=== PATIENT | female | born 1990 | race American Indian/Alaskan Native ===

== ENCOUNTER 2019-12-20 18:02 | Inpatient (IN) | payer MEDICAID ==
[2019-12-20] MEDS ORDERED: MINERAL OIL 30 ML ORAL LIQD PO PRN (18:31)
[2019-12-20] MEDS ORDERED: ONDANSETRON 4 MG/2 ML INJ IV PRN (18:31)
[2019-12-20] MEDS ORDERED: TERBUTALINE 1 MG/1 ML INJ SUB-Q PRN (18:31)
[2019-12-20] MEDS ORDERED: ePHEDrine SULFATE 50 MG/1 ML INJ IV PRN (18:31)
[2019-12-20] MEDS ORDERED: fentaNYL 100 MCG/2 ML INJ IV PRN (18:31)
[2019-12-20] MEDS ORDERED: TERBUTALINE 1 MG/1 ML INJ IVP PRN (18:31)
[2019-12-20] MEDS ORDERED: LIDOCAINE (2%) 20 MG/1 ML VIAL 20 ML MDV INFILTRATI ONE (18:31)
[2019-12-20] MEDS ORDERED: DINOPROSTONE 10 MG VAG SUPP VG ONE (18:31)
[2019-12-20] MEDS ORDERED: OXYTOCIN 20 UNIT/1000ML DRIP 20 UNITS/1,000 ML BAG IV SCH (19:00)
[2019-12-20 19:24] LABS: Hematocrit 33.9 % (30.3-42.9); Hemoglobin 11.3 gm/dl (10.1-14.3); Mean Corpuscular HGB Conc 33 % (30-34); Mean Corpuscular Volume 85 fl (79-97); Platelet Count 270 K/mm3 (140-440); Red Blood Count 4.01 M/mm3 (3.65-5.03); Red Cell Distribution Width 15.7 % (13.2-15.2)
--- NOTE | 2019-12-20 20:02 | History and Physical Report ---
History of Present Illness Date of examination: 12/20/19 Date of admission: 12/20/19 18:02 Chief complaint: " I'm doing fine" History of present illness: 28 y/o female presents today @ 38.6 wks for an induction of labor. Pt started her pnc in Apr 2019 at [facility] and was co-managed by [facility] for GDMA2 and morbid obesity class III. Pt was started on Glyburide 5mg @ HS and Wellbutrin for outburst of anger and worrying. labs: B pos, AB screen neg, Rubella immune, VDRL NR, Hbsg neg, HIV neg, HSVII neg, GC/Chly/Trich neg, SS pos, GBS neg H&H 11.9/37.9, plt 295 Past History Past Surgical History: no surgical history Family/Genetic History: hypertension Social history: no significant social history - Obstetrical History Expected Date of Delivery: 12/28/19 Actual Gestation: 38 Week(s) 6 Day(s) : 1 Para: 0 Hx # Term Pregnancies: 0 Number of Pregnancies: 0 Spontaneous Abortions: 0 Induced : 0 Number of Living Children: 0 Medications and Allergies Allergies Allergy/AdvReac Type Severity Reaction Status Date / Time No Known Allergies Allergy Verified 12/20/19 18:24 Active Meds: Active Medications Butorphanol Tartrate (Stadol) 2 mg IV Q2H PRN PRN Reason: Pain , Severe (7-10) Ephedrine Sulfate (Ephedrine Sulfate) 10 mg IV Q2M PRN PRN Reason: Hypotension Fentanyl (Sublimaze) 100 mcg IV Q2H PRN PRN Reason: Pain,Severe (7-10) LABOR PAIN Oxytocin/Sodium Chloride (Pitocin/Ns 20 Unit/1000ml Drip) 20 units in 1,000 mls @ 125 mls/hr IV DIRECT JOHN Lactated Ringer's (Lactated Ringers) 1,000 mls @ 125 mls/hr IV DIRECT JOHN Mineral Oil (Mineral Oil) 30 ml PO QHS PRN PRN Reason: Constipation Ondansetron HCl (Zofran) 4 mg IV Q8H PRN PRN Reason: Nausea And Vomiting Terbutaline Sulfate (Brethine) 0.25 mg SUB-Q ONCE PRN PRN Reason: Hyperstimulation/Hypertonicity Terbutaline Sulfate (Brethine) 0.25 mg IVP ONCE PRN PRN Reason: Hyperstimulation/Hypertonicity Review of Systems Breasts: normal Genitourinary: normal appearance Rectal Exam: deferred - Vital Signs Vital signs: Vital Signs Pulse Pulse Ox 108 H 97 12/20/19 18:21 12/20/19 18:21 Temp Pulse Resp BP Pulse Ox 98.3 F 96 H 20 118/74 100 12/20/19 18:24 12/20/19 19:36 12/20/19 18:24 12/20/19 18:24 12/20/19 19:36 - Physical Exam Breasts: Positive: normal Abdomen: Positive: normal appearance, soft, other (gravid) Genitourinary (Female): Positive: normal external genitalia Vulva: both: normal Vagina: Positive: normal moisture Uterus: Positive: enlarged Adnexa: both: normal Anus/Rectum: Positive: normal perianal skin Extremities: Positive: normal - Obstetrical FHR: category 1 Uterine Contraction Monitor Mode: External Cervical Dilatation: 0 (per nurse) Uterine Contraction Pattern: Regular Uterine Tone Measurement Phase: Resting Uterine Contraction Intensity: Mild Results Result Diagrams: 12/20/19 19:04 Abnormal lab results 12/20/19 Range/Units 19:04 RDW 15.7 H (13.2-15.2) % All other labs normal. Assessment and Plan A: IUP@ 38.6 wks GDMA2 GBS neg CAT I FHT P: Admit for cervidil induction FSBS Q 4 hours US for EFW Pain med prn Expectant mtg - Patient Problems (1) At high risk for complications of intrauterine (IUP) Current Visit: Yes Status: Acute (2) GDM, class A2 Current Visit: Yes Status: Acute
--- NOTE | 2019-12-21 02:00 | Ultrasound Report ---
ULTRASOUND OBSTETRIC, 12/21/2019 CLINICAL INFORMATION/INDICATION: Evaluate well-being and CARMEN. COMPARISON: No prior studies are available for comparison FINDINGS: There is a single intrauterine . BPD = 9.1 cm = 36 weeks, 6 day(s). Head circumference = 33.5 cm = 38 weeks, 2 day(s). Abdominal circumference = 35.5 cm = 39 weeks, 3 day(s). Femur length = 7.7 cm = 39 weeks, 2 day(s). Overall estimated sonographic age = 38 weeks, 3 day(s). heart rate is 141 beats per minute. Estimated weight is 3624 grams. position is cephalic. Placenta is left lateral and grade 1 . Amniotic fluid volume appears within normal limits and measures 11.2 cm. Impression: 1. Single living intrauterine with estimated sonographic age of 38 weeks, 3 day(s). Signer Name: Alba Lemos MD Signed: 12/21/2019 1:56 AM Workstation Name: [id number]
[2019-12-21] MEDS ORDERED: ZOLPIDEM 5 MG TAB PO PRN (02:17)
[2019-12-21] MEDS ORDERED: DINOPROSTONE 10 MG VAG SUPP VG ONE (06:03)
[2019-12-21] MEDS: LACTATED RINGERS 1,000 ML IV SCH (08:48)
--- NOTE | 2019-12-21 11:28 | Progress Note ---
Assessment and Plan - Patient Problems (1) Encounter for induction of labor Current Visit: Yes Status: Acute Plan to address problem: Cervidil remains inplace Pain meds as desired Remove cervidil at 1830 Anticipate (2) GDM, class A2 Current Visit: Yes Status: Acute Plan to address problem: Continue to monitor blood glucose levels per orders Consult physician regarding blood glucose results and any needed coverage Subjective - Subjective Date of service: 12/21/19 Principal diagnosis: IOL Interval history: See admission H & P Patient reports: movement normal, contractions (irregular), no new complaints, no loss of fluid, no vaginal bleeding Objective - Vital Signs Vital Signs: Vital Signs - 12hr 12/21/19 12/21/19 12/21/19 00:51 00:52 00:53 Temperature 97.7 F Pulse Rate 90 89 99 H Respiratory 24 Rate Blood Pressure 114/66 Blood Pressure 144/66 [Left] Blood Pressure [Right] O2 Sat by Pulse 97 97 Oximetry 12/21/19 12/21/19 12/21/19 02:45 02:53 06:25 Temperature 98.2 F Pulse Rate 91 H 96 H 99 H Respiratory 24 Rate Blood Pressure 139/87 133/61 120/55 Blood Pressure 133/61 [Left] Blood Pressure [Right] O2 Sat by Pulse 98 95 Oximetry 12/21/19 12/21/19 12/21/19 06:27 06:30 06:35 Temperature 97.8 F Pulse Rate 94 H 94 H 86 Respiratory 24 Rate Blood Pressure Blood Pressure [Left] Blood Pressure 120/55 [Right] O2 Sat by Pulse 97 98 95 Oximetry 12/21/19 12/21/19 12/21/19 06:40 06:43 06:45 Temperature Pulse Rate 83 84 85 Respiratory Rate Blood Pressure 114/55 Blood Pressure [Left] Blood Pressure [Right] O2 Sat by Pulse 96 91 95 Oximetry 12/21/19 12/21/19 12/21/19 06:48 06:50 06:55 Temperature Pulse Rate 86 87 81 Respiratory Rate Blood Pressure 112/55 Blood Pressure [Left] Blood Pressure [Right] O2 Sat by Pulse 93 95 94 Oximetry 12/21/19 12/21/19 12/21/19 07:00 07:05 07:06 Temperature Pulse Rate 84 92 H 89 Respiratory Rate Blood Pressure Blood Pressure [Left] Blood Pressure [Right] O2 Sat by Pulse 93 94 93 Oximetry 12/21/19 12/21/19 12/21/19 07:10 07:13 07:15 Temperature Pulse Rate 88 78 86 Respiratory Rate Blood Pressure 107/63 Blood Pressure [Left] Blood Pressure [Right] O2 Sat by Pulse 93 92 96 Oximetry 12/21/19 12/21/19 12/21/19 07:20 07:25 07:30 Temperature Pulse Rate 87 83 88 Respiratory Rate Blood Pressure 106/56 Blood Pressure [Left] Blood Pressure [Right] O2 Sat by Pulse 98 97 96 Oximetry 12/21/19 12/21/19 12/21/19 07:34 07:35 07:40 Temperature Pulse Rate 82 92 H 78 Respiratory Rate Blood Pressure 111/58 Blood Pressure [Left] Blood Pressure [Right] O2 Sat by Pulse 92 95 96 Oximetry 12/21/19 12/21/19 12/21/19 07:45 07:52 07:53 Temperature Pulse Rate 134 H 199 H Respiratory Rate Blood Pressure Blood Pressure [Left] Blood Pressure [Right] O2 Sat by Pulse 79 L 86 91 Oximetry 12/21/19 12/21/19 12/21/19 07:55 07:58 08:06 Temperature Pulse Rate 91 H 164 H Respiratory Rate Blood Pressure 109/64 Blood Pressure [Left] Blood Pressure [Right] O2 Sat by Pulse 92 89 Oximetry 12/21/19 12/21/19 12/21/19 08:10 08:12 08:15 Temperature Pulse Rate 89 77 76 Respiratory Rate Blood Pressure 115/56 Blood Pressure [Left] Blood Pressure [Right] O2 Sat by Pulse 98 99 Oximetry 12/21/19 12/21/19 12/21/19 08:20 08:25 08:30 Temperature Pulse Rate 76 78 79 Respiratory Rate Blood Pressure 105/55 Blood Pressure [Left] Blood Pressure [Right] O2 Sat by Pulse 95 97 98 Oximetry 12/21/19 12/21/19 12/21/19 08:35 08:40 08:45 Temperature Pulse Rate 80 99 H 88 Respiratory Rate Blood Pressure Blood Pressure [Left] Blood Pressure [Right] O2 Sat by Pulse 97 98 97 Oximetry 12/21/19 12/21/19 12/21/19 08:50 08:55 08:56 Temperature Pulse Rate 90 66 100 H Respiratory Rate Blood Pressure 106/60 Blood Pressure [Left] Blood Pressure [Right] O2 Sat by Pulse 99 99 Oximetry 12/21/19 12/21/19 12/21/19 09:00 09:05 09:10 Temperature 97.2 F L Pulse Rate 100 H 90 97 H Respiratory 20 Rate Blood Pressure Blood Pressure [Left] Blood Pressure [Right] O2 Sat by Pulse 99 98 98 Oximetry 12/21/19 12/21/19 12/21/19 09:15 09:20 09:25 Temperature Pulse Rate 80 74 88 Respiratory Rate Blood Pressure Blood Pressure [Left] Blood Pressure [Right] O2 Sat by Pulse 99 100 98 Oximetry 12/21/19 12/21/19 12/21/19 09:30 09:35 09:40 Temperature Pulse Rate 90 82 89 Respiratory Rate Blood Pressure Blood Pressure [Left] Blood Pressure [Right] O2 Sat by Pulse 98 98 98 Oximetry 12/21/19 12/21/19 12/21/19 09:45 09:50 09:55 Temperature Pulse Rate 76 88 93 H Respiratory Rate Blood Pressure Blood Pressure [Left] Blood Pressure [Right] O2 Sat by Pulse 99 99 100 Oximetry 12/21/19 12/21/19 12/21/19 10:00 10:05 10:10 Temperature Pulse Rate 94 H 92 H 79 Respiratory Rate Blood Pressure Blood Pressure [Left] Blood Pressure [Right] O2 Sat by Pulse 99 100 99 Oximetry 12/21/19 12/21/19 12/21/19 10:11 10:15 10:20 Temperature Pulse Rate 78 83 92 H Respiratory Rate Blood Pressure 99/55 Blood Pressure [Left] Blood Pressure [Right] O2 Sat by Pulse 98 99 Oximetry 12/21/19 12/21/19 12/21/19 10:25 10:30 10:35 Temperature Pulse Rate 94 H 93 H 83 Respiratory Rate Blood Pressure Blood Pressure [Left] Blood Pressure [Right] O2 Sat by Pulse 96 98 97 Oximetry 12/21/19 12/21/19 12/21/19 10:40 10:45 10:50 Temperature Pulse Rate 88 94 H 97 H Respiratory Rate Blood Pressure Blood Pressure [Left] Blood Pressure [Right] O2 Sat by Pulse 99 99 98 Oximetry 12/21/19 12/21/19 12/21/19 10:55 11:00 11:05 Temperature Pulse Rate 80 80 86 Respiratory Rate Blood Pressure Blood Pressure [Left] Blood Pressure [Right] O2 Sat by Pulse 95 98 98 Oximetry 12/21/19 12/21/19 12/21/19 11:10 11:15 11:20 Temperature Pulse Rate 88 84 88 Respiratory Rate Blood Pressure 112/64 Blood Pressure [Left] Blood Pressure [Right] O2 Sat by Pulse 98 98 99 Oximetry - Exam Breasts: deferred Cardiovascular: Regular rate Lungs: Normal air movement Abdomen: Present: other (gravid) Uterus: Present: other (enlarged) FHR: category 1 Uterine Contraction Monitor Mode: External Uterine Contraction Pattern: Irregular Uterine Tone Measurement Phase: Resting Uterine Contraction Intensity: Mild - Labs Labs: Abnormal Labs 12/20/19 12/20/19 12/21/19 19:04 21:05 01:01 RDW 15.7 H POC Glucose 124 H 177 H 12/21/19 12/21/19 06:24 10:18 RDW POC Glucose 121 H 108 H Laboratory Results - last 24 hr 12/20/19 12/20/19 12/20/19 19:04 19:06 20:50 WBC 8.0 RBC 4.01 Hgb 11.3 Hct 33.9 MCV 85 MCH 28 MCHC 33 RDW 15.7 H Plt Count 270 Glucose 100 POC Glucose Blood Type B POSITIVE Antibody Screen Negative 12/20/19 12/21/19 12/21/19 21:05 01:01 06:24 WBC RBC Hgb Hct MCV MCH MCHC RDW Plt Count Glucose POC Glucose 124 H 177 H 121 H Blood Type Antibody Screen 12/21/19 10:18 WBC RBC Hgb Hct MCV MCH MCHC RDW Plt Count Glucose POC Glucose 108 H Blood Type Antibody Screen
[2019-12-21] MEDS: BUTORPHANOL 2 MG/1 ML INJ IV PRN ×2 (13:53→16:06)
[2019-12-21] MEDS ORDERED: OXYTOCIN DRIP 30 UNITS/500 ML BAG IV SCH ×2 (23:45)
[2019-12-21] MEDS ORDERED: ACETAMINOPHEN 325 MG TAB PO ONE (23:58)
[2019-12-21] MEDS ORDERED: MINERAL OIL 30 ML ORAL LIQD PO PRN (23:59)
[2019-12-22] MEDS ORDERED: LIDOCAINE (2%) 20 MG/1 ML VIAL 20 ML MDV INFILTRATI ONE (00:25)
[2019-12-22] MEDS: LACTATED RINGERS 1,000 ML IV SCH ×3 (08:20→22:48)
--- NOTE | 2019-12-22 10:01 | Progress Note ---
Assessment and Plan A: at 39 weeks, 1 day gestation. Gestational diabetes. P: Continuous EFM. Continue induction of labor. Subjective - Subjective Date of service: 12/22/19 Principal diagnosis: at 39 weeks, 1 day gestation. IOL. Interval history: Patient is having labor induced at term due to diabetes. Patient reports active movement. Patient denies leaking of fluid or contractions. Patient reports: movement normal, contractions (irregular), no new complaints, no loss of fluid, no vaginal bleeding Objective - Vital Signs Vital Signs: Vital Signs - 12hr 12/21/19 12/21/19 12/21/19 21:59 22:00 22:04 Temperature Pulse Rate 86 89 84 Blood Pressure Blood Pressure [Right] O2 Sat by Pulse 95 87 98 Oximetry 12/21/19 12/21/19 12/21/19 22:08 22:09 22:14 Temperature Pulse Rate 85 92 H 91 H Blood Pressure Blood Pressure [Right] O2 Sat by Pulse 88 96 97 Oximetry 12/21/19 12/21/19 12/21/19 22:15 22:19 22:21 Temperature Pulse Rate 85 101 H Blood Pressure Blood Pressure [Right] O2 Sat by Pulse 84 78 L 87 Oximetry 12/21/19 12/21/19 12/21/19 22:24 22:28 22:29 Temperature Pulse Rate 88 109 H 66 Blood Pressure Blood Pressure [Right] O2 Sat by Pulse 96 86 88 Oximetry 12/21/19 12/21/19 12/21/19 22:33 22:34 22:42 Temperature Pulse Rate 64 97 H Blood Pressure Blood Pressure [Right] O2 Sat by Pulse 84 99 82 L Oximetry 12/21/19 12/21/19 12/21/19 22:44 22:49 22:54 Temperature Pulse Rate 107 H 95 H 100 H Blood Pressure Blood Pressure [Right] O2 Sat by Pulse 91 95 95 Oximetry 12/21/19 12/21/19 12/21/19 22:59 23:04 23:07 Temperature Pulse Rate 79 88 78 Blood Pressure Blood Pressure [Right] O2 Sat by Pulse 95 97 94 Oximetry 12/21/19 12/21/19 12/21/19 23:09 23:14 23:19 Temperature Pulse Rate 82 79 90 Blood Pressure Blood Pressure [Right] O2 Sat by Pulse 99 97 100 Oximetry 12/21/19 12/21/1920 23:21 23:24 23:29 Temperature Pulse Rate 96 H 88 92 H Blood Pressure Blood Pressure [Right] O2 Sat by Pulse 94 98 100 Oximetry 12/21/19 12/21/19 12/21/19 23:34 23:39 23:44 Temperature Pulse Rate 93 H 97 H 87 Blood Pressure Blood Pressure [Right] O2 Sat by Pulse 99 98 98 Oximetry 12/21/19 12/21/19 12/21/19 23:49 23:50 23:54 Temperature Pulse Rate 74 79 78 Blood Pressure 143/77 135/73 Blood Pressure [Right] O2 Sat by Pulse 99 99 Oximetry 12/21/19 12/22/19 12/22/19 23:59 00:00 00:04 Temperature 98.8 F Pulse Rate 72 74 Blood Pressure Blood Pressure [Right] O2 Sat by Pulse 98 98 Oximetry 12/22/19 12/22/19 12/22/19 00:09 00:14 00:19 Temperature Pulse Rate 76 74 73 Blood Pressure Blood Pressure [Right] O2 Sat by Pulse 98 97 99 Oximetry 12/22/19 12/22/19 12/22/19 00:21 00:24 00:29 Temperature Pulse Rate 81 96 H 101 H Blood Pressure 105/65 Blood Pressure [Right] O2 Sat by Pulse 100 99 Oximetry 12/22/19 12/22/19 12/22/19 00:34 00:39 00:41 Temperature Pulse Rate 79 52 L 96 H Blood Pressure Blood Pressure [Right] O2 Sat by Pulse 96 85 100 Oximetry 12/22/19 12/22/19 12/22/19 00:46 00:51 00:56 Temperature Pulse Rate 86 81 79 Blood Pressure Blood Pressure [Right] O2 Sat by Pulse 98 98 97 Oximetry 12/22/19 12/22/19 12/22/19 01:01 01:06 01:11 Temperature Pulse Rate 79 78 79 Blood Pressure Blood Pressure [Right] O2 Sat by Pulse 98 97 98 Oximetry 12/22/19 12/22/19 12/22/19 01:16 01:21 01:26 Temperature Pulse Rate 76 83 84 Blood Pressure Blood Pressure [Right] O2 Sat by Pulse 97 98 98 Oximetry 12/22/19 12/22/19 12/22/19 01:31 01:36 01:41 Temperature Pulse Rate 82 85 79 Blood Pressure Blood Pressure [Right] O2 Sat by Pulse 98 98 98 Oximetry 12/22/19 12/22/19 12/22/19 01:46 01:51 01:56 Temperature Pulse Rate 82 82 90 Blood Pressure Blood Pressure [Right] O2 Sat by Pulse 98 98 98 Oximetry 12/22/19 12/22/19 12/22/19 02:01 02:06 02:11 Temperature Pulse Rate 81 87 89 Blood Pressure Blood Pressure [Right] O2 Sat by Pulse 99 98 97 Oximetry 12/22/19 12/22/19 12/22/19 02:16 02:21 02:26 Temperature Pulse Rate 85 80 83 Blood Pressure Blood Pressure [Right] O2 Sat by Pulse 97 98 98 Oximetry 12/22/19 12/22/19 12/22/19 02:31 02:36 02:41 Temperature Pulse Rate 80 74 75 Blood Pressure Blood Pressure [Right] O2 Sat by Pulse 98 98 98 Oximetry 12/22/19 12/22/19 12/22/19 02:46 02:51 02:56 Temperature Pulse Rate 84 74 80 Blood Pressure Blood Pressure [Right] O2 Sat by Pulse 98 98 99 Oximetry 12/22/19 12/22/19 12/22/19 03:01 03:06 03:11 Temperature Pulse Rate 80 78 83 Blood Pressure Blood Pressure [Right] O2 Sat by Pulse 98 98 98 Oximetry 12/22/19 12/22/19 12/22/19 03:16 03:18 03:21 Temperature Pulse Rate 84 84 93 H Blood Pressure Blood Pressure [Right] O2 Sat by Pulse 97 94 99 Oximetry 12/22/19 12/22/19 12/22/19 03:23 03:27 03:59 Temperature Pulse Rate 83 82 84 Blood Pressure 136/76 124/77 Blood Pressure [Right] O2 Sat by Pulse 92 Oximetry 12/22/19 12/22/19 12/22/19 04:00 04:28 05:00 Temperature 97.9 F Pulse Rate 82 80 Blood Pressure 132/69 137/77 Blood Pressure [Right] O2 Sat by Pulse Oximetry 12/22/19 12/22/19 12/22/19 05:27 05:41 06:29 Temperature Pulse Rate 85 84 68 Blood Pressure 153/70 127/68 116/67 Blood Pressure [Right] O2 Sat by Pulse Oximetry 12/22/19 12/22/1920 06:59 07:04 07:06 Temperature 98.1 F Pulse Rate 71 66 66 Blood Pressure 103/54 112/58 Blood Pressure 112/58 [Right] O2 Sat by Pulse Oximetry 12/22/19 12/22/19 12/22/19 07:16 07:21 07:22 Temperature Pulse Rate 82 93 H 51 L Blood Pressure Blood Pressure [Right] O2 Sat by Pulse 100 98 83 L Oximetry 12/22/19 12/22/19 12/22/19 07:28 07:34 07:37 Temperature Pulse Rate 146 H 57 L 55 L Blood Pressure Blood Pressure [Right] O2 Sat by Pulse 81 L 82 L 85 Oximetry 12/22/19 12/22/19 12/22/19 07:42 07:45 07:47 Temperature Pulse Rate 58 L 56 L 58 L Blood Pressure Blood Pressure [Right] O2 Sat by Pulse 84 83 L 84 Oximetry 12/22/19 12/22/19 12/22/19 07:50 07:56 08:04 Temperature Pulse Rate Blood Pressure Blood Pressure [Right] O2 Sat by Pulse 80 L 80 L 81 L Oximetry 12/22/19 12/22/19 12/22/19 08:09 08:10 08:14 Temperature Pulse Rate 57 L 52 L Blood Pressure Blood Pressure [Right] O2 Sat by Pulse 83 L 82 L 83 L Oximetry 12/22/19 12/22/19 12/22/19 08:17 08:24 08:29 Temperature Pulse Rate 143 H 65 Blood Pressure Blood Pressure [Right] O2 Sat by Pulse 81 L 78 L 79 L Oximetry 12/22/19 12/22/19 12/22/19 08:31 08:34 08:36 Temperature Pulse Rate 63 74 Blood Pressure Blood Pressure [Right] O2 Sat by Pulse 80 L 80 L 79 L Oximetry 12/22/19 12/22/19 12/22/19 08:40 08:41 08:46 Temperature Pulse Rate 73 75 Blood Pressure Blood Pressure [Right] O2 Sat by Pulse 78 L 81 L 79 L Oximetry 12/22/19 12/22/19 12/22/19 08:47 08:51 08:53 Temperature Pulse Rate 69 153 H 143 H Blood Pressure Blood Pressure [Right] O2 Sat by Pulse 80 L 79 L 78 L Oximetry 12/22/19 12/22/19 12/22/19 08:56 09:00 09:02 Temperature Pulse Rate 121 H 80 78 Blood Pressure 136/71 Blood Pressure [Right] O2 Sat by Pulse 80 L 94 Oximetry 12/22/19 12/22/19 12/22/19 09:03 09:05 09:09 Temperature Pulse Rate 97 H 77 Blood Pressure Blood Pressure [Right] O2 Sat by Pulse 94 99 88 Oximetry 12/22/19 12/22/19 12/22/19 09:10 09:14 09:16 Temperature Pulse Rate 80 58 L Blood Pressure Blood Pressure [Right] O2 Sat by Pulse 92 69 L 87 Oximetry 12/22/19 12/22/19 12/22/19 09:21 09:26 09:27 Temperature Pulse Rate 80 79 80 Blood Pressure 119/59 Blood Pressure [Right] O2 Sat by Pulse 100 100 Oximetry 12/22/19 12/22/19 12/22/19 09:31 09:36 09:41 Temperature Pulse Rate 75 88 76 Blood Pressure Blood Pressure [Right] O2 Sat by Pulse 92 83 L 87 Oximetry 12/22/19 12/22/19 12/22/19 09:43 09:46 09:48 Temperature Pulse Rate 86 59 L Blood Pressure Blood Pressure [Right] O2 Sat by Pulse 82 L 0 L 73 L Oximetry 12/22/19 12/22/19 09:53 09:54 Temperature Pulse Rate 90 Blood Pressure Blood Pressure [Right] O2 Sat by Pulse 82 L 100 Oximetry - Exam Abdomen: Present: normal appearance, soft. Absent: distention, tenderness, guarding, rigidity Uterus: Present: normal, fundal height above umbilicus. Absent: tenderness FHR: category 1 Uterine Contraction Monitor Mode: External Uterine Contraction Pattern: Irregular Uterine Contraction Intensity: Mild Extremities: normal - Labs Labs: Abnormal Labs 12/20/19 12/20/19 12/21/19 19:04 21:05 01:01 RDW 15.7 H POC Glucose 124 H 177 H 12/21/19 12/21/19 12/22/19 06:24 10:18 00:41 RDW POC Glucose 121 H 108 H 137 H 12/22/19 05:50 RDW POC Glucose 119 H Laboratory Results - last 24 hr 12/21/19 12/21/19 12/22/19 10:18 18:02 00:41 POC Glucose 108 H 82 137 H 12/22/19 05:50 POC Glucose 119 H
[2019-12-22] MEDS ORDERED: ACETAMINOPHEN 325 MG TAB PO ONE (11:30)
--- NOTE | 2019-12-22 13:02 | Event Note ---
Date: 12/22/19 5 late appearing FHR decelerations noted per monitor. Normal baseline FHR and minimal to moderate variability. Oxygen per face mask at 10 LPM. Pitocin stopped. Patient positioned in left lateral position. Consulted with Dr. Mcelroy re: patient; Dr. Mcelroy viewed FHR tracing. Informed MD of patient's cervical exam (FT/thick/soft/-[address] Mcelroy states to continue induction of labor; no other orders received.
[2019-12-22] MEDS: BUTORPHANOL 2 MG/1 ML INJ IV PRN (20:40)
[2019-12-22] MEDS ORDERED: fentaNYL-BUPIV 2 MCG/ML-0.125% 200 MCG/100 ML BAG EPIDURAL ONE (21:45)
[2019-12-22] MEDS ORDERED: DEXMEDETOMIDINE 200 MCG/2 ML VIAL IV ONE (21:46)
--- NOTE | 2019-12-22 22:01 | Anesthesia Consultation ---
Anesthesia Consult and Med Hx Date of service: 12/22/19 - Airway Anesthetic Teeth Evaluation: Good ROM Head & Neck: Adequate Mental/Hyoid Distance: Adequate Mallampati Class: Class II Intubation Access Assessment: Probably Good - Pulmonary Exam CTA: Yes - Cardiac Exam Cardiac Exam: RRR - Pre-Operative Health Status ASA Pre-Surgery Classification: ASA2 Proposed Anesthetic Plan: Epidural - Pulmonary Hx Asthma: No COPD: No Hx Pneumonia: No - Cardiovascular System Hx Hypertension: No - Central Nervous System Hx Seizures: No Hx Psychiatric Problems: No - Endocrine Hx Renal Disease: No Hx End Stage Renal Disease: No Hx Hypothyroidism: No Hx Hyperthyroidism: No - Hematic Hx Anemia: No Hx Sickle Cell Disease: No (HAS TRAIT) - Other Systems Hx Alcohol Use: No Hx Obesity: Yes
[2019-12-22] MEDS ORDERED: ePHEDrine SULFATE 50 MG/1 ML INJ IV PRN (22:02)
[2019-12-22] MEDS ORDERED: NALOXONE 2 MG/2 ML INJ IV PRN (22:02)
--- NOTE | 2019-12-22 22:02 | Progress Note ---
Labor Epidural - Labor Epidural Start Time: 21:47 Stop Time: 21:54 Performed by:: ROCIO COONEY Procedure: Patient is requesting epidural for labor pain. H&P, and labs reviewed. Procedure explained, questions answered, consent obtained. Patient in sitting position with blood pressure cuff and pulse ox on and working. Timeout performed immediately before start of procedure. Sterile betadine prep/drape. 3 mL 1% lidocaine skin wheal at L[3]-L[4]. 18-gauge Touhy epidural needle advanced to [id number] with saline at 9 cm. Epidural dexmedetomidine [30] mcg administered. Epidural catheter advanced to 14 cm, negative aspiration for blood and csf, negative test dose 3 ml 1.5% lidocaine with epinephrine. Sterile steri-strips and tegaderm applied, followed by tape reinforcement. Patient tolerated procedure well.
[2019-12-22] MEDS ORDERED: fentaNYL-BUPIV 2 MCG/ML-0.125% 200 MCG/100 ML BAG EPIDURAL SCH (23:00)
--- NOTE | 2019-12-22 23:17 | Event Note ---
Date: 12/22/19 Patient had SROM at 20:05, clear fluid. Patient has received epidural. Patient has had recurrent late decelerations with past 7 contractions. Pitocin has been turned off; patient's position has been changed to left lateral, now right lateral. Patient has oxygen per face mask at 10 LPM. She has received IV fluid bolus. Her cervical exam is 1.5/80/-3 to -4. Called Dr. Mcelroy at 22:59 and informed him of FHR tracing, recurrent late decelerations with minimal variability, and interventions taken with no response so far. Also informed him of current cervical exam.
--- NOTE | 2019-12-22 23:30 | Event Note ---
Date: 12/22/19 Dr. Mcelroy called and stated he is on his way in to do a section. Informed the patient.
[2019-12-22] MEDS ORDERED: OXYTOCIN 20 UNIT/1000ML DRIP 20 UNITS/1,000 ML BAG IV SCH (23:45)
[2019-12-22] MEDS ORDERED: ceFAZolin/Water 2 GM/20 ML 2 GM/20 ML SYRINGE IV NR (23:45)
[2019-12-22] MEDS ORDERED: LACTATED RINGERS 1,000 ML IV SCH (23:45)
[2019-12-22] MEDS ORDERED: METOCLOPRAMIDE 10 MG/2 ML INJ IV ONE (23:50)
[2019-12-22] MEDS ORDERED: BICITRA ORAL LIQD 30ML PO ONE (23:50)
[2019-12-22] MEDS ORDERED: FAMOTIDINE 20 MG/2 ML INJ IV ONE (23:50)
[2019-12-23] MEDS ORDERED: ceFAZolin/STERILE WATER 2 GM/20 ML SYRINGE IV ONE (00:22)
[2019-12-23] MEDS ORDERED: SODIUM BICARB 8.4% 50 MEQ/50 ML VIAL IV ONE (01:12)
[2019-12-23] MEDS ORDERED: LIDOCAINE 2%/EPINEPHRINE 1:200,000 VIAL (20 ML) INFILTRATI ONE (01:12)
[2019-12-23] MEDS ORDERED: KETOROLAC 30 MG/1 ML INJ ONE (01:12)
[2019-12-23] MEDS ORDERED: SODIUM CHLORIDE 0.9% IRR 1,500 ML BOTTLE IR ONE (01:20)
[2019-12-23] MEDS ORDERED: WATER FOR IRRIG STERILE 1,500 ML BOTTLE IR ONE (01:20)
[2019-12-23] MEDS ORDERED: ONDANSETRON 4 MG/2 ML INJ IV PRN (01:29)
[2019-12-23] MEDS ORDERED: NALOXONE 0.4 MG/1 ML INJ IV PRN (01:29)
[2019-12-23] MEDS ORDERED: KETOROLAC 30 MG/1 ML INJ IV PRN (01:29)
[2019-12-23] MEDS ORDERED: WITCH HAZEL/ GLYCERIN PAD TP PRN (01:29)
[2019-12-23] MEDS ORDERED: LANOLIN/ZINC/DIMETHICONE (LANSINOH) 7 GM TP PRN (01:29)
[2019-12-23] MEDS ORDERED: ACETAMINOPHEN 325 MG TAB PO PRN (01:29)
--- NOTE | 2019-12-23 01:35 | Operative Report ---
Operative Report Operative Report: Date of surgery: December 23, 2019 Preoperative diagnoses: intolerance of labor, failed induction. Postoperative diagnoses: The same. Operation: Lower segment transverse delivery Surgeon:Ovidio Mcelroy MD Test Driver: Ellie Ochoa CRNA Anesthesia: Spinal block Estimated blood loss: 500 mL Complications: None Findings: There was a live baby girl in occiput posterior position. Apgars 8/8 with a weight 8 pounds 8 ounces. The uterus, fallopian tubes and ovaries were all grossly normal. The inferior aspects of the greater omentum seen through the Pfannenstiel incision was grossly normal. Procedure in detail: The patient was taken to the operating room and given a spinal block. Patient was placed in the straight supine position and a Varner catheter was inserted. The patient was prepped in the abdomen. The drapes were placed. A timeout was done. With the go ahead from the licensed appraiser, a Pfannenstiel incision was made. This incision was carried across the subcutaneous layer to the fascia which was also divided transversely. The recti abdominis muscle flaps were stripped from the fascia using a combination of blunt and sharp dissections. The muscles were in the midline to gain access to the anterior parietal peritoneum which was divided after excluding any underlying viscera. The access to the peritoneal cavity was then widened by manual stretching. The bladder blade was applied. The utero vesicle peritoneal flap was divided transversely allowing the bladder to be displaced caudally. The uterine incision was placed in the lower segment transversely. The uterine incision was carried to the decidual layer. The uterine incision was extended on both sides using the bandage scissors. The amniotic sac was ruptured with clear fluid. The head was lifted out of the false maternal pelvis and delivered through the incision using fundal pressure. The airways were bulb suctioned beginning with the mouth. Continuing fundal pressure combined with traction on the mandibular processes of the jaw delivered the rest of the baby. The umbilical cord was double clamped and divided. The baby was carefully transferred to the pediatric team. The placenta was manually removed from the uterine cavity. The uterine cavity was explored and was empty of any placental remnants. The uterine incision was repaired in 2 layers with #1 Vicryl. The surgical line on the uterus was hemostatic. Blood and clots were cleared from the peritoneal cavity. The anterior parietal peritoneum was repaired with #1 Vicryl. The fascia was repaired with #1 Vicryl. The subcutaneous layer was made hemostatic using the Bovie before the skin was closed subcuticularly with 4-0 Vicryl. There were no complications. The estimated blood loss was 500 mL. All sponges and instrument counts were correct. Patient was safely transferred to the recovery room.
[2019-12-23] MEDS ORDERED: OXYTOCIN 20 UNIT/1000ML DRIP 20 UNITS/1,000 ML BAG IV SCH (02:00)
[2019-12-23] MEDS: MORPHINE 4 MG/1 ML INJ IV PRN ×2 (07:46→16:52)
[2019-12-23] MEDS: ceFAZolin/NS 1 GM/50 ML 1 GM/50 ML BAG IV SCH ×2 (07:49→19:35)
[2019-12-23] MEDS: HYDROcodone/ACETAMINOPHEN 5-325 MG TAB PO PRN ×3 (08:59→20:07)
[2019-12-23] MEDS: IBUPROFEN 800 MG TAB PO PRN ×3 (10:37→23:44)
[2019-12-23] MEDS: PRENATAL VIT27-FE FUMARATE-FOLIC ACID VIT TAB PO SCH (10:38)
[2019-12-23] MEDS: FERROUS SULFATE 325 MG TAB PO SCH (10:38)
[2019-12-24 02:18] LABS: Hematocrit 29.5 % (30.3-42.9); Hemoglobin 9.8 gm/dl (10.1-14.3)
[2019-12-24] MEDS ORDERED: DIPHtheria,PERTUSSIS(ACELL),TETANUS VACCINE/PF 0.5 ML VIAL IM ONE (06:00)
[2019-12-24] MEDS: IBUPROFEN 800 MG TAB PO PRN ×3 (06:03→18:00)
[2019-12-24] MEDS: FERROUS SULFATE 325 MG TAB PO SCH (09:29)
[2019-12-24] MEDS: PRENATAL VIT27-FE FUMARATE-FOLIC ACID VIT TAB PO SCH (09:29)
[2019-12-24] MEDS: HYDROcodone/ACETAMINOPHEN 5-325 MG TAB PO PRN ×3 (09:35→22:17)
--- NOTE | 2019-12-24 10:14 | Progress Note ---
Assessment and Plan - Patient Problems (1) S/P primary low transverse Current Visit: Yes Status: Acute Plan to address problem: POD 1 - stable Continue routine postop orders Abdominal binder ordered Ambulation encouraged, as tolerated Anticipate discharge in 24 hours (2) GDM, class A2 Current Visit: Yes Status: Acute Plan to address problem: Last B Diet changed from Regular to GDM diet (3) Anemia due to blood loss, acute Current Visit: Yes Status: Acute Plan to address problem: Asymptomatic Continue iron therapy Subjective - Subjective Date of service: 12/24/19 Principal diagnosis: POD #1; s/p Primary LTCS; GDM 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 Event Notes and Operative Report Patient reports: appetite normal, voiding normally, pain well controlled, flatus, ambulating normally, no dizzy ambulation, no bowel movement : doing well Objective - Vital Signs Latest vital signs: Vital Signs Temp Pulse Resp BP BP Pulse Ox 12/24/19 09:11 98 F 97 H 20 129/84 12/24/19 01:35 97.3 F L 91 H 18 99/53 100 12/23/19 21:37 98.7 F 78 18 128/73 100 12/23/19 15:32 98.7 F 88 18 130/77 100 12/23/19 11:15 98.6 F 94 H 18 118/74 98 Intake and Output 12/23/19 12/24/19 12/24/19 23:59 07:59 15:59 Intake Total 530 240 240 Output Total 600 400 Balance -70 -160 240 Intake: IV 50 ANCEF/NS 1 GM/50 ML 1 gm 50 In 50 ml @ 100 mls/hr IV Q8H FOR[facility]LY [facility], 1928–1983 Rx#:[id number] Oral 240 Intake, Free Water 480 240 Output: Urine 600 400 Void 600 400 Other: Total, Intake Amount 240 Total, Output Amount 300 400 # Voids Void 2 1 - Exam Cardiovascular: Present: Regular rate Lungs: Present: Clear to auscultation Abdomen: Present: normal appearance, soft Vulva: both: normal Uterus: Present: normal, firm, fundal height at umbilicus Extremities: Present: normal Incision: Present: normal, dry, intact, dressed Comments: small lochia - Labs Labs: Abnormal lab results 12/24/19 Range/Units 01:59 Hgb 9.8 L (10.1-14.3) gm/dl Hct 29.5 L (30.3-42.9) %
[2019-12-25] MEDS: IBUPROFEN 800 MG TAB PO PRN ×2 (02:47→09:55)
[2019-12-25] MEDS: HYDROcodone/ACETAMINOPHEN 5-325 MG TAB PO PRN (05:17)
--- NOTE | 2019-12-25 09:50 | Discharge Summary ---
Providers - Providers Date of Admission: 12/20/19 18:02 Date of discharge: 12/25/19 (1200) Attending physician: RY CASTILLO MD Primary care physician: RY CASTILLO MD Hospitalization Reason for admission: induction of labor, IUP at term Delivery: Procedure: primary low transverse Episiotomy: none Laceration: none Incision: dry, intact (no drainage or bleeding noted) Other procedures: none complications: none Discharge diagnosis: IUP at term delivered, other (anemia) baby: female Hospital course: See admission H & P; OB operative note and PP progress notes Condition at discharge: Stable Disposition: DC- TO HOME OR SELFCARE - Discharge Diagnoses (1) GDM, class A2 Status: Acute (2) S/P primary low transverse Status: Acute Plan - Discharge Medications Prescriptions: Ferrous Sulfate [Feosol 325 MG tab] 325 mg PO QDAY 30 Days #60 tablet Ibuprofen [Motrin 800 MG tab] 800 mg PO Q8HR PRN 14 Days #42 tablet PRN Reason: Pain, Mild (1-3) HYDROcodone/APAP 5-325 [[place] 5/325] 1 - 2 each PO Q4HR PRN #30 tablet PRN Reason: Pain - Provider Discharge Summary Activity: routine, no sex for 6 weeks, no heavy lifting 4 weeks, no strenuous exercise Diet: other (Iron rich diet) Instructions: routine Additional instructions: [] Smoking cessation referral if applicable(refer to patient education folder for contact #) [] Refer to [facility]'s [facility] Booklet Call your doctor immediately for: * Fever > 100.5 * Heavy vaginal bleeding ( >1 pad per hour) * Severe persistent headache * Shortness of breath * Reddened, hot, painful area to leg or breast * Drainage or odor from incision. * Keep incision clean and dry at all times and follow doctor's instructions regarding bathing/showering - Follow up plan Follow up: RY CASTILLO MD [Primary Care Provider] - 7 Days Forms: [facility] Discharge Summary
[2019-12-25] MEDS: PRENATAL VIT27-FE FUMARATE-FOLIC ACID VIT TAB PO SCH (09:53)
[2019-12-25] MEDS: FERROUS SULFATE 325 MG TAB PO SCH (10:37)
[2019-12-25 13:25] VITALS: BP 128/78
== END 2019-12-25 13:56 | disposition home or self-care (01) | DRG 765 ==
LOC: LD 18:02 → APU 12-23 00:10 → OB 12-23 03:51
PROVIDERS: ADMIT Obstetrics & Gynecology; ATTEND Obstetrics & Gynecology
PROC: 10D00Z1 Extraction of Products of Conception, Low, Open Approach (ICD-10-PCS; principal; 2019-12-23)
PROC: 3E0234Z Introduction of Serum, Toxoid and Vaccine into Muscle, Percutaneous Approach (ICD-10-PCS; 2019-12-24)
DX: O24.429 Gestational diabetes mellitus in childbirth, unspecified control (principal); D62 Acute posthemorrhagic anemia; O99.214 Obesity complicating childbirth; E66.01 Morbid (severe) obesity due to excess calories; O76 Abnormality in fetal heart rate and rhythm complicating labor and delivery; O90.81 Anemia of the puerperium; Z82.49 Family history of ischemic heart disease and other diseases of the circulatory system; O61.9 Failed induction of labor, unspecified; Z23 Encounter for immunization; Z37.0 Single live birth; Z3A.38 38 weeks gestation of pregnancy
CPT/HCPCS: 36415; 59200; 76816; 80053; 81001; 82947; 82962; 83615; 84550; 85014; 85018; 85025; 85027; 85610; 85730; 86850; 86900; 86901; 90471; 90715; 96374; 96375; G0378; A6250; J0360; J0595; J0690; J1885; J2270; J2590; J2765; J3010; J3490; J7120